=== PATIENT | male | born 1995 | race Hispanic/Latino ===

== ENCOUNTER 2024-07-27 02:11 | Emergency (ER) | payer SELFPAY ==
[2024-07-27 03:29] LABS: Specific Gravity 1.025 (1.005-1.030); Sqamous Epithelial None Seen /HPF (None Seen); Urine Bacteria None Seen /HPF (<20); Urine Bilirubin NEGATIVE (Negative); Urine Blood Negative (Negative); Urine Clarity Clear (Clear); Urine Color Yellow (Yellow); Urine Culture Reflex Order NOT NEEDED; Urine Glucose NEGATIVE (Negative); Urine Ketones NEGATIVE (Negative); Urine Microscopic Reflex YN ORDER UMIC; Urine Mucus Slight /HPF (None Seen); Urine Nitrite NEGATIVE (Negative); Urine Protein NEGATIVE (Negative); Urine RBC <5 /HPF (None Seen); Urine Sperm Present (None Seen); Urine Urobilinogen Normal (Normal); Urine WBC <5 /HPF (<5)
[2024-07-27] MEDS ORDERED: ONDANSETRON 4 MG/2 ML VIAL ONE (03:30)
[2024-07-27] MEDS ORDERED: FAMOTIDINE 20 MG/2 ML VIAL IV ONE (03:31)
[2024-07-27] MEDS ORDERED: DICYCLOMINE HCL 20 MG/2 ML AMP IM ONE (03:31)
[2024-07-27] MEDS ORDERED: NA CHLORIDE 0.9% 1,000 ML ONE (03:31)
[2024-07-27] MEDS ORDERED: KETOROLAC 30 MG/ML INJ ONE (03:31)
[2024-07-27 03:34] LABS: Absolute Basophils 0.1 K/uL (0-0.5); Absolute Eosinophils 0.1 K/uL (0-0.5); Absolute Lymphocytes (CBC) 2.8 K/uL (0.7-4.9); Absolute Monocytes 0.9 K/uL (0.1-1.3); Absolute Neutrophil 8.3 K/uL (1.8-8.0); Basophils % 0.4 % (0-1.3); Eosinophils % 0.9 % (0-4.4); Hematocrit 41.9 % (39.6-49.0); Hemoglobin 14.6 g/dL (13.6-17.9); Lymphocytes % 23.4 % (15.3-44.8); MCHC 34.9 g/dL (32.0-36.0); MCV 86.1 fL (80-100); MPV 8.4 fL (7.6-11.3); Monocytes % 7.1 % (3.3-12.3); Neutrophils % 68.2 % (41.7-73.7); Platelets 259 thou/uL (152-406); RBC Red Blood Cell Count 4.87 M/uL (4.33-5.43); Red Cell Distribution Width 14.2 % (12.1-15.2)
[2024-07-27 03:54] LABS: Albumin/Globulin Ratio 1.3 (1.1-1.8); Anion Gap 6.7 mEq/L (5.0-15.0); Bilirubin Total 0.8 mg/dL (0.2-1.0); Globulin 3.2 g/dL (2.3-3.5); Potassium 3.7 mEq/L (3.5-5.1); Protein, Total 7.2 g/dL (6.4-8.2)
--- NOTE | 2024-07-27 05:50 | ER ---
Nurse's Notes [facility] Name: Tiago Wiggins Age: 28 yrs Sex: Male : 1995 Arrival Date: 07/27/2024 Time: 02:11 Bed 20 Private MD: Diagnosis: Acute gastroenteritis, acute nausea vomiting Presentation: 07/27 02:30 Chief complaint: Patient states: EPIGASTRIC PAIN STARTED YESTERDAY AFTER EATING. MADE jj7 HIMSELF VOMIT AND PAIN WENT AWAY. WOKE UP AT 1AM HAVING EPIGASTRIC PAIN. Coronavirus screen: At this time, the client does not indicate any symptoms associated with coronavirus-19. Ebola Screen: No symptoms or risks identified at this time. Initial Sepsis Screen: Does the patient meet any 2 criteria? No. Patient's initial sepsis screen is negative. Does the patient have a suspected source of infection? No. Patient's initial sepsis screen is negative. Risk Assessment: Do you want to hurt yourself or someone else? Patient reports no desire to harm self or others. Onset of symptoms was July 27, 2024. 02:30 Method Of Arrival: Ambulatory [facility] 02:30 Acuity: SELENA 3 jj7 02:30 Note TYLENOL 500MG. jj7 Triage Assessment: 02:30 General: Appears in no apparent distress. uncomfortable, Behavior is calm, cooperative, jj7 appropriate for age. Pain: Complains of pain in epigastric area. GI: Reports epigastric pain, nausea. Historical: - Allergies: 02:30 No Known Allergies; jj7 - PMHx: 02:30 None; jj7 - PSHx: 02:30 None; jj7 - Immunization history:: Adult Immunizations up to date, Client reports receiving the 1st dose of the Covid vaccine. - Infectious Disease History:: Denies. - Social history:: Smoking status: Patient reports the use of cigarette tobacco products, smokes one-half pack cigarettes per day, Patient uses alcohol, on a daily basis. Patient/guardian denies using street drugs, IV drugs. - Family history:: not pertinent. Screenin:30 [facility] ED Fall Risk Assessment (Adult) History of falling in the last 3 months, jj7 including since admission No falls in past 3 months (0 pts) Confusion or Disorientation No (0 pts) Intoxicated or Sedated No (0 pts) Impaired Gait No (0 pts) Mobility Assist Device Used No (0 pt) Altered Elimination No (0 pt) Score/Fall Risk Level 0 - 2 = Low Risk Oriented to surroundings, Maintained a safe environment, Educated pt \T\ family on fall prevention, incl call for assistance when getting out of bed, Assessed \T\ reinforced patient's understanding of fall precautions. Abuse screen: Denies threats or abuse. Nutritional screening: No deficits noted. Tuberculosis screening: No symptoms or risk factors identified. Assessment: 02:30 Reassessment: SEE TRIAGE ASSESSMENT. jj7 Vital Signs: 02:30 BP 119 / 83; Pulse 74; Resp 20; Temp 98.1; Pulse Ox 100% ; Weight 104.33 kg; Height 5 j7 ft. 6 in. ; Pain 8/10; 03:40 BP 139 / 96; Pulse 64; Resp 17; Pulse Ox 99% ; jj7 05:00 BP 129 / 83; Pulse 70; Resp 17; Pulse Ox 98% ; jj7 06:01 BP 124 / 84; Pulse 68; Resp 19; Temp 98.3; Pulse Ox 100% ; Pain 0/10; jj7 02:30 Body Mass Index 37.12 (104.33 kg, 167.64 cm) jj7 02:30 Pain Scale: Adult jj7 06:01 Pain Scale: Adult jj7 [place] Coma Score: 02 02:07 Eye Response: spontaneous(4). Motor Response: obeys commands(6). Verbal Response: sp4 oriented(5). Total: 15. ED Course: 07/27 02:17 Patient arrived in ED. gm2 02:29 Jack Lyon MD is Attending Physician. sp4 02:30 Inserted saline lock: 20 gauge in left antecubital area, using aseptic technique. Blood jj7 collected. Flushed with 10 mL NS. 02:30 Arm band placed on right wrist. Patient placed in an exam room, on a stretcher. jj7 02:30 Patient has correct armband on for positive identification. Bed in low position. Call jj7 light in reach. Side rails up X 1. Provided Education on: USE OF CALL SCHWARTZ. 02:34 Andrey Law RN is Primary Nurse. jj7 03:08 CBC with Diff Sent. rk3 03:08 CMP Sent. rk3 03:08 Lipase Sent. rk3 03:08 Urinalysis w/ reflexes Sent. rk3 03:19 Radiology exam delayed due to test not completed at this time. nj 03:23 Triage completed. jj7 03:27 CBC with Diff Sent. jj7 03:27 CMP Sent. jj7 03:27 Lipase Sent. jj7 03:27 Urinalysis w/ reflexes Sent. jj7 04:04 CT Abd/Pelvis - IV Contrast Only In Process Unspecified. EDMS 06:01 No provider procedures requiring assistance completed. IV discontinued, intact, jj7 bleeding controlled, No redness/swelling at site. Pressure dressing applied. Administered Medications: 03:39 Drug: Famotidine IVP 20 mg IVP once; dilute with 10 mL 0.9% NaCl; give over 2 minutes jj7 Route: IVP; Site: left antecubital; 06:05 Follow up: Response: Marked relief of symptoms; Pain is decreased jj7 03:39 Drug: NS 0.9% IV 1000 ml IV at 1 bolus Per protocol; to be given as a bolus over 60 jj7 minutes Route: IV; Rate: 1 bolus; Site: left antecubital; 04:50 Follow up: IV Status: Completed infusion jj7 03:39 Drug: Ondansetron IVP 8 mg IVP once; over 2 minutes Route: IVP; Site: left antecubital; jj7 06:05 Follow up: Response: Marked relief of symptoms; Pain is decreased jj7 03:39 Drug: Dicyclomine IM 20 mg IM once Route: IM; Site: right deltoid; jj7 06:05 Follow up: Response: Marked relief of symptoms; Pain is decreased jj7 03:39 Drug: Ketorolac IVP 30 mg IVP once Route: IVP; Site: left antecubital; jj7 06:05 Follow up: Response: Marked relief of symptoms; Pain is decreased jj7 Medication: 02:30 VIS not applicable for this client. jj7 Outcome: 05:49 Discharge ordered by MD. miramontes 06:01 Discharged to home ambulatory, jj7 06:01 Condition: improved 06:01 Discharge instructions given to patient, Instructed on discharge instructions, medication usage, Demonstrated understanding of instructions, medications, Prescriptions given X 3, 06:06 Patient left the ED. jj7 Signatures: Dispatcher [employer] EDMS Greg Sutton Juwairiyah, RN RN jj7 Jack Lyon MD MD sp4 Dora Fagan gm2 Crystal Lang rk3
--- NOTE | 2024-07-27 05:50 | EDPHYS ---
Physician Documentation [facility] Name: Tiago Wiggins Age: 28 yrs Sex: Male : 1995 Arrival Date: 07/27/2024 Time: 02:11 Bed 20 Private MD: ED Physician Jack Lyon HPI: 07/27 02:29 This 28 yrs old Female presents to ER via Unassigned with complaints of sp4 Abdominal Pain. 07/28 02:07 28-year-old male presents with acute epigastric abdominal pain associated with multiple sp4 episodes of vomiting.. Historical: - Allergies: 07/27 02:30 No Known Allergies; jj7 - PMHx: 02:30 None; jj7 - PSHx: 02:30 None; jj7 - Immunization history:: Adult Immunizations up to date, Client reports receiving the 1st dose of the Covid vaccine. - Infectious Disease History:: Denies. - Social history:: Smoking status: Patient reports the use of cigarette tobacco products, smokes one-half pack cigarettes per day, Patient uses alcohol, on a daily basis. Patient/guardian denies using street drugs, IV drugs. - Family history:: not pertinent. ROS: 07/28 02:07 Constitutional: Negative for fever, chills, and weight loss, positive epigastric pain sp4 positive nausea vomiting All other systems are negative, Exam: 02:07 Constitutional: This is a well developed, well nourished patient who is awake, alert, sp4 and in no acute distress. Head/Face: Normocephalic, atraumatic. Eyes: Pupils equal round and reactive to light, extra-ocular motions intact. Lids and lashes normal. Conjunctiva and sclera are not injected. Cornea within normal limits. Periorbital areas with no swelling, redness, or edema. ENT: Nares patent. No nasal discharge, no septal abnormalities noted. Tympanic membranes are normal and external auditory canals are clear. Oropharynx with no redness, swelling, or masses, exudates, or evidence of obstruction, uvula midline. Mucous membranes moist. Neck: Trachea midline, no thyromegaly or masses palpated, and no cervical lymphadenopathy. Supple, full range of motion without nuchal rigidity, or vertebral point tenderness. Chest/axilla: Normal chest wall appearance and motion. Nontender with no deformity. No lesions are appreciated. Cardiovascular: Regular rate and rhythm with a normal S1 and S2. No gallops, murmurs, or rubs. Normal PMI, no JVD. No pulse deficits. Respiratory: Lungs have equal breath sounds bilaterally, clear to auscultation and percussion. No rales, rhonchi or wheezes noted. No increased work of breathing, no retractions or nasal flaring. Abdomen/GI: Soft, with normal bowel sounds. No distension or tympany. No guarding or rebound. No evidence of tenderness throughout. Back: No spinal tenderness. No costovertebral tenderness. Skin: Warm, dry with normal turgor. Normal color with no rashes, no lesions, and no evidence of cellulitis. MS/ Extremity: Pulses equal, no cyanosis. Neurovascular intact. Full, normal range of motion. Neuro: Awake and alert, GCS 15, oriented to person, place, time, and situation. Cranial nerves II-XII grossly intact. Motor strength 5/5 in all extremities. Sensory grossly intact. Psych: Awake, alert, with orientation to person, place and time. Behavior, mood, and affect are within normal limits Vital Signs: 07/27 02:30 BP 119 / 83; Pulse 74; Resp 20; Temp 98.1; Pulse Ox 100% ; Weight 104.33 kg; Height 5 jj7 ft. 6 in. ; Pain 8/10; 03:40 BP 139 / 96; Pulse 64; Resp 17; Pulse Ox 99% ; jj7 05:00 BP 129 / 83; Pulse 70; Resp 17; Pulse Ox 98% ; jj7 06:01 BP 124 / 84; Pulse 68; Resp 19; Temp 98.3; Pulse Ox 100% ; Pain 0/10; jj7 02:30 Body Mass Index 37.12 (104.33 kg, 167.64 cm) j7 02:30 Pain Scale: Adult jj7 06:01 Pain Scale: Adult jj7 [place] Coma Score: 07/28 02:07 Eye Response: spontaneous(4). Motor Response: obeys commands(6). Verbal Response: sp4 oriented(5). Total: 15. MDM: 07/27 03:00 Medical Screening Exam initiated sp4 07/28 02:07 Differential diagnosis: gastritis, gastroesophageal reflux disease, Hepatitis, sp4 Irritable bowel syndrome. Data reviewed: vital signs, nurses notes, lab test result(s), radiologic studies, CT scan. 02:08 ED course: EXAMINATION: CTABDOMEN AND PELVIS WITH CONTRAST CLINICAL INDICATION: Male, sp4 28 years old.ABD PAIN TECHNIQUE: CT abdomen and pelvis was performed, after the administration of IV contrast, as per department protocol. Axial, sagittal and coronal reconstructions were obtained. One or more of the following dose reduction techniques were used: Automated exposure control, adjustment of the mA and/or kV according to patient size, and/or iterative reconstruction. Unless otherwise specified, incidental findings do not require dedicated imaging follow-up. [id number]. COMPARISON: No prior exam. FINDINGS: LOWER CHEST: No acute process identified.No significant pericardial effusion. Mild circumferential thickening of the distal esophagus which could reflect esophagitis. UPPER GI: No significant abnormality. LIVER: No significant focal abnormality. GALLBLADDER/BILE DUCTS: No biliary ductal dilatation. PANCREAS: No mass, ductal dilation, or jesus-pancreatic fluid. SPLEEN: Unremarkable. ADRENALS: No adrenal masses. KIDNEYS AND URETERS: No hydronephrosis.No suspicious renal mass. ABDOMINAL AORTA AND OTHER VESSELS: Normal caliber aorta and IVC. PERITONEUM: No abnormal free fluid. No free air. LYMPH NODES: No pathologic lymphadenopathy. ABDOMINAL WALL: Unremarkable SMALL BOWEL/COLON: Small bowel has normal course and caliber. No colonic wall thickening or pericolonic inflammatory changes.Normal appendix. URINARYBLADDER: Underdistended but grossly unremarkable. REPRODUCTIVE ORGANS: No pathologic process. MUSCULOSKELETAL: No acute or suspicious osseous abnormality. ADDITIONAL FINDINGS: None. IMPRESSION: No acute or significant abnormalities seen in the abdomen or pelvis. Normal appendix. Electronically signed by: Ash Jang MD 07/27/2024 05:36 AM BLOOD BANK ORDER CONTROL CLERK. 02:09 Consideration of Admission/Observation Escalation of care including sp4 admission/observation considered. 07/27 02:30 Order name: CBC with Diff; Complete Time: 05:44 sp4 07/27 02:30 Order name: CMP; Complete Time: :44 sp4 07/27 02:30 Order name: Lipase; Complete Time: 05:44 sp4 07/27 02:30 Order name: Urinalysis w/ reflexes; Complete Time: 05:44 4 07/27 03:09 Order name: CT Abd/Pelvis - IV Contrast Only 4 07/27 02:30 Order name: IV Saline Lock; Complete Time: 03:08 sp4 07/27 02:30 Order name: Labs collected and sent; Complete Time: 03:08 sp4 Administered Medications: 07/27 03:39 Drug: Famotidine IVP 20 mg IVP once; dilute with 10 mL 0.9% NaCl; give over 2 minutes jj7 Route: IVP; Site: left antecubital; 06:05 Follow up: Response: Marked relief of symptoms; Pain is decreased jj7 03:39 Drug: NS 0.9% IV 1000 ml IV at 1 bolus Per protocol; to be given as a bolus over 60 jj7 minutes Route: IV; Rate: 1 bolus; Site: left antecubital; 04:50 Follow up: IV Status: Completed infusion jj7 03:39 Drug: Ondansetron IVP 8 mg IVP once; over 2 minutes Route: IVP; Site: left antecubital; jj7 06:05 Follow up: Response: Marked relief of symptoms; Pain is decreased jj7 03:39 Drug: Dicyclomine IM 20 mg IM once Route: IM; Site: right deltoid; jj7 06:05 Follow up: Response: Marked relief of symptoms; Pain is decreased jj7 03:39 Drug: Ketorolac IVP 30 mg IVP once Route: IVP; Site: left antecubital; jj7 06:05 Follow up: Response: Marked relief of symptoms; Pain is decreased jj7 Disposition: 07/28 02:09 Chart complete. sp4 Disposition Summary: 07/27/24 05:49 Discharge Ordered Notes: Location: Home sp4 Problem: new sp4 Symptoms: have improved sp4 Condition: Stable sp4 Diagnosis - Acute gastroenteritis, acute nausea vomiting sp4 Followup: sp4 - With: Private Physician - When: 7 - 10 days - Reason: Recheck today's complaints Discharge Instructions: - Discharge Summary Sheet sp4 - Clear Liquid Diet, Adult, [id number] sp4 Forms: - Work release form sp4 - Patient Portal Instructions sp4 Prescriptions: - Lomotil 2.5-0.025 mg Oral tablet - take 1 tablet ORAL route every 6 hours As needed; 30 tablet; Refills: 0, sp4 Product Selection Permitted - dicyclomine 20 mg Oral tablet - take 1 tablet ORAL route 4 times per day PRN abdominal pain; 30 tablet; sp4 Refills: 0, Product Selection Permitted - ondansetron 8 mg Oral Tablet,disintegrating - take 1 tablet ORAL route every 8 hours PRN nausea; 30 tablet; Refills: 0, sp4 Product Selection Permitted Signatures: Dispatcher [employer] Andrey Martinez RN RN jj7 Jack Lyon MD MD sp4 Corrections: (The following items were deleted from the chart) 07/27 02:31 02:31 CBC+H.LAB.BRZ ordered. EDMS EDMS 02: 02:31 COMPREHENSIVE METABOLIC PANEL+C.LAB.BRZ ordered. EDMS EDMS 02: 02:31 LIPASE+C.LAB.BRZ ordered. EDMS EDMS 02: 02:31 Urinalysis+U.LAB.BRZ ordered. EDMS EDMS
--- NOTE | 2024-07-27 06:53 | RAD REPORT ---
EXAMINATION: CT ABDOMEN AND PELVIS WITH CONTRAST CLINICAL INDICATION: Male, 28 years old. ABD PAIN TECHNIQUE: CT abdomen and pelvis was performed, after the administration of IV contrast[facility]. Axial, sagittal and coronal reconstructions were obtained. One or more of the following dose reduction techniques were used: Automated exposure control, adjustment of the mA and/o r kV according to patient size, and/or iterative reconstruction. Unless otherwise specified, incidental findings do not require dedicated imaging follow-up. [id number]. COMPARISON: No prior exam. FINDINGS: LOWER CHEST: No acute process identified. No significant pericardial effusion. Mild circumferential t hickening of the distal esophagus which could reflect esophagitis. UPPER GI: No significant abnormality. LIVER: No significant focal abnormality. GALLBLADDER/BILE DUCTS: No biliary ductal dilatation. PANCREAS: No mass, ductal dilation, or jesus-pancreatic fluid. SPLEEN: Unremarkable. ADRENALS: No adrenal masses. KIDNEYS AND URETERS: No hydronephrosis. No suspicious renal mass. ABDOMINAL AORTA AND OTHER VESSELS: Normal caliber aorta and IVC. PERITONEUM: No abnormal free fluid. No free air. LYMPH NODES: No pathologic lymphadenopathy. ABDOMINAL WALL: Unremarkable SMALL BOWEL/COLON: Small bowel has normal course and caliber. No colonic wall thickening or pericolon ic inflammatory changes. Normal appendix. URINARY BLADDER: Underdistended but grossly unremarkable. REPRODUCTIVE ORGANS: No pathologic process. MUSCULOSKELETAL: No acute or suspicious osseous abnormality. ADDITIONAL FINDINGS: None. IMPRESSION: No acute or significant abnormalities seen in the abdomen or pelvis. Normal appendix. Electronically signed by: Ash Jang MD 07/27/2024 05:36 AM [facility] Due to temporary technical issues with the PACS/[employer] reporting system, reports are being jordan d by the in-house radiologist without review as a courtesy to ensure prompt reporting the interpreting radiologist is fully responsible for the content of the report. Transcribed Date/Time: 07/27/2024 6:53 AM
[2024-07-27 07:38] VITALS: BP 124/84; TEMP 98.3; O2SAT 100
== END 2024-07-27 06:06 | disposition home or self-care (01) ==
LOC: EDSEX 02:11 → ER 02:11
DX: K52.9 Noninfective gastroenteritis and colitis, unspecified (principal); F17.210 Nicotine dependence, cigarettes, uncomplicated
CPT/HCPCS: 36415; 74177; 80053; 81001; 83690; 85025; J0500; J2405; J7030; Q9967